=== PATIENT | male | born 1985 | race Hispanic/Latino ===

== ENCOUNTER 2021-07-26 18:28 | Emergency (ER) | payer OTHER ==
[~2021-07-26] VITALS: Ht 180.3 cm; Wt 77.1 kg
[~2021-07-26 18:28] MED LIST: AMOX-426 PO; DOLU50TA PO; EMTR1TAB11 PO; HIV MEDS PO; IBUPROFEN PO; PREN-146 PO; VIT PO
[2021-07-26 18:46] LABS: HEMATOCRIT 50.8 % (42-54); MEAN CORPUSCULAR HEMOGLOBIN 33.6 pg (27.0-33.0); MEAN CORPUSCULAR HGB CONC 34.3 g/dL (32.0-36.0); MEAN CORPUSCULAR VOLUME 98.1 fL (79-99); PLATELET COUNT (AUTO) 254 K/uL (130-400); RED BLOOD CELL COUNT(AUTO) 5.18 MIL/uL (4.50-6.20); RED CELL DISTRIBUTION WIDTH 11.9 % (11.0-15.5)
[2021-07-26] MEDS ORDERED: SOLU-MEDROL 125MG VIAL ONE (18:53)
[2021-07-26 18:54] LABS: CREATININE 1.2 mg/dL (0.5-1.5); POTASSIUM 3.2 mmol/L (3.5-5.1)
[2021-07-26] MEDS ORDERED: SOLU-MEDROL 125MG VIAL IVP ONE (19:00)
[2021-07-26] MEDS ORDERED: 0.9%NACL 1000ML 1,000 ML IV ONE (19:00)
[2021-07-26] MEDS ORDERED: IPRATROPIUM/ALBUTEROL SULFATE 3 ML SOLUTION IH ONE ×3 (19:00)
[2021-07-26 19:03] LABS: ALBUMIN 5.1 g/dL (3.5-5.0); BILIRUBIN,TOTAL 0.4 mg/dL (0.2-1.0); TOTAL PROTEIN, SERUM 8.6 g/dL (6.0-8.3)
[2021-07-26 19:28] VITALS: BP 121/81
[2021-07-26 19:28] LABS: BAND NEUTROPHILS % (MANUAL) 2 % (0-2); EOSINOPHILS % (MANUAL) 1 % (1-6); LYMPHOCYTES % (MANUAL) 16 % (22-44); MAN.DIFF COMMENT-IMPRESSION MANUAL DIFFERENTIAL; MONOCYTES % (MANUAL) 4 % (2-9); REACTIVE LYMPHOCYTES 20 % (0-0); SEGMENTED NEUTROPHILS % 57 % (40-70)
[2021-07-26] MEDS ORDERED: POTASSIUM BICARB/CIT AC 25 MEQ TABLET.EFF PO ONE (19:30)
[2021-07-26 19:51] LABS: APPEARANCE,URINE Clear (CLEAR); BILIRUBIN,URINE Negative (NEGATIVE); COLOR,URINE Yellow (YELLOW); GLUCOSE, URINE (UA) Negative (NEGATIVE); KETONES,URINE Trace mg/dL (NEGATIVE); LEUKOCYTE ESTERASE ,URINE Negative (NEGATIVE); NITRATE,URINE Negative (NEGATIVE); OCCULT BLOOD,URINE Negative (NEGATIVE); PH,URINE 6.5 (5.0-8.0); PROTEIN,URINE Trace mg/dL (NEGATIVE)
[2021-07-26 20:08] LABS: BACTERIA,URINE Rare /HPF (None Seen); RBC,URINE 0-1 /HPF (0-1); SQUAMOUS EPITHELIAL CELL,UR Rare /HPF (0-2); WBC,URINE 0-1 /HPF (0-1)
[2021-07-26] MEDS ORDERED: ALBU8.5H8 IH (20:08)
[2021-07-26] MEDS ORDERED: PRED20TA3 PO (20:13)
== END 2021-07-26 20:37 | disposition home or self-care (01) ==
LOC: EDH 18:28
DX: J45.901 Unspecified asthma with (acute) exacerbation (principal); E87.6 Hypokalemia; Z20.822 Contact with and (suspected) exposure to COVID-19; Z79.52 Long term (current) use of systemic steroids
CPT/HCPCS: 36415; 71045; 80053; 81001; 84484; 85025; 87635; 93005; 94640 ×3; 96374; 99285; C9803; J2930

== ENCOUNTER 2022-01-17 22:36 | Emergency (ER) | payer OTHER ==
[~2022-01-17] VITALS: Ht 180.3 cm; Wt 80.7 kg
[~2022-01-17 22:36] MED LIST changes: +ALBU8.5H8 IH; +PRED20TA3 PO
[2022-01-17] MEDS ORDERED: IBUPROFEN 800 MG TAB PO ONE (23:00)
[2022-01-17] MEDS ORDERED: ACETAMINOPHEN 500 MG TABLET PO ONE (23:00)
[2022-01-17] MEDS ORDERED: 0.9%NACL 1000ML 1,000 ML IV SCH (23:00)
[2022-01-17] MEDS ORDERED: IBUPROFEN 800 MG TAB ONE (23:04)
[2022-01-17] MEDS ORDERED: ACETAMINOPHEN 500 MG TABLET ONE (23:04)
[2022-01-17 23:14] LABS: BASOPHILS % (AUTO) 0.1 % (0.0-5.0); EOSINOPHILS % (AUTO) 0.5 % (0.0-8.0); HEMATOCRIT 41.2 % (42-54); LYMPHOCYTES % (AUTO) 31.1 % (21.0-51.0); MEAN CORPUSCULAR HEMOGLOBIN 33.9 pg (27.0-33.0); MEAN CORPUSCULAR HGB CONC 34.7 g/dL (32.0-36.0); MEAN CORPUSCULAR VOLUME 97.6 fL (79-99); MONOCYTES % (AUTO) 9.9 % (3.0-13.0); NEUTROPHILS % (AUTO) 58.2 % (40.0-77.0); PLATELET COUNT (AUTO) 246 K/uL (130-400); RED BLOOD CELL COUNT(AUTO) 4.22 MIL/uL (4.50-6.20); RED CELL DISTRIBUTION WIDTH 12.5 % (11.0-15.5); WHITE BLOOD COUNT (AUTO) 8.5 K/uL (4.8-10.8)
[2022-01-17 23:27] LABS: CREATININE 1.2 mg/dL (0.5-1.5); POTASSIUM 3.6 mmol/L (3.5-5.1)
[2022-01-17 23:27] LABS: APPEARANCE,URINE CLEAR (CLEAR); BILIRUBIN,URINE NEGATIVE (NEGATIVE); COLOR,URINE YELLOW (YELLOW); GLUCOSE, URINE (UA) NEGATIVE (NEGATIVE); KETONES,URINE NEGATIVE (NEGATIVE); LEUKOCYTE ESTERASE ,URINE NEGATIVE (NEGATIVE); NITRATE,URINE NEGATIVE (NEGATIVE); OCCULT BLOOD,URINE NEGATIVE (NEGATIVE); PH,URINE 6.5 (5.0-8.0); PROTEIN,URINE NEGATIVE (NEGATIVE); UROBILINOGEN,URINE 0.2 mg/dL (0.2-1.0)
[2022-01-17 23:32] LABS: ALBUMIN 3.7 g/dL (3.5-5.0); CRP QUANTITATIVE 52.9 mg/L (0.00-9.0); TOTAL PROTEIN, SERUM 8.2 g/dL (6.0-8.3)
[2022-01-17] MEDS ORDERED: D-ME1POW16 PO (23:44)
[2022-01-17 23:50] VITALS: BP 125/73
== END 2022-01-17 23:59 | disposition home or self-care (01) ==
LOC: EDH 22:36
DX: J06.9 Acute upper respiratory infection, unspecified (principal); E86.0 Dehydration; Z20.822 Contact with and (suspected) exposure to COVID-19; J45.909 Unspecified asthma, uncomplicated; Z79.1 Long term (current) use of non-steroidal anti-inflammatories (NSAID); Z79.52 Long term (current) use of systemic steroids
CPT/HCPCS: 99284; 96360; 71045; 87635; 80053; 85025; 87040 ×2; 87880; 87804 ×2; 83605; 86140; 81003; 36415; C9803; J7030

== ENCOUNTER 2024-06-23 15:24 | Emergency (ER) | payer BC ==
[~2024-06-23] VITALS: Ht 180.3 cm; Wt 86.2 kg
[~2024-06-23 15:24] MED LIST changes: +D-ME1POW16 PO
--- NOTE | 2024-06-23 15:33 | ERN ---
ED Note History of Present Illness Stated Complaint: SOB, FEVER 101.7, BODY ACHES Chief Complaint: Shortness of Breath Time Seen by MD: 15:26 Dictation: PATIENT IS A 39-YEAR-OLD MALE COMING IN TODAY WITH FEVER CHILLS GENERALIZED BODY ACHES AND FLU-LIKE SYMPTOMS TO INCLUDE CLEAR RUNNY NOSE DRY COUGH FOR TWO DAYS. NO NAUSEA VOMITING NO DIARRHEA NO LOSS OF TASTE OR SMELL HE HAS DOES NOT HAVE A PRIMARY CARE DOCTOR, HAS BEEN TAKING NYQUIL [id number] FOR HIS SYMPTOMS. Allergies: Coded Allergies: No Known Allergies (Unverified Allergy, Unknown, 12/26/14) Uncoded Allergies: NKDA (Allergy, Unknown, 12/26/14) Home Meds Active Scripts D-Methorphan/PE/Acetaminophen (Theraflu Ms Severe Cold Pckt) 1 Each Powd.pack, 1 EACH PO QIDP, #20 PACK Prov:JORDI NORRIS 01/17/22 Prednisone (Prednisone) 20 Mg Tablet, 2 TAB PO DAILY for 33 Days, #6 TAB 0 Refills Prov:PARESH SANCHEZ 07/26/21 Albuterol Sulfate (Proair Hfa) 8.5 Gm Hfa.aer.ad, 8.5 GM IH Q6HPRN PRN for SHORTNESS OF BREATH, #1 INHALER Prov:PARESH SANCHEZ 07/26/21 Amoxicillin/Potassium Clav (Augmentin 500-125 Tablet) 1 Each Tablet, 1 EACH PO BID, #20 TAB Prov:MERCEDEZ BRAGA MD 12/30/14 Reported Medications Emtricitabine/Tenofovir (Truvada 200 mg-300 mg Tablet) 1 Each Tablet, 1 EACH PO AM, TAB 12/29/14 Dolutegravir Sodium (Tivicay) 50 Mg Tablet, 50 MG PO AM, TAB 12/29/14 [vit B6] No Conflict Check, TAB PO AM 12/29/14 Pnv95/Ferrous Fumarate/Fa ( Multivitamins Tablet) 1 Each Tablet, 1 EACH PO AM, TAB 12/29/14 [Hiv Meds] No Conflict Check, PO DAILY 12/26/14 [Ibuprufen] No Conflict Check, PO AD PRN for PAIN 12/26/14 Past Medical History Past Medical History: Asthma, HIV Surgical History: None PSYCH History: no pertinent psych hx Family History: Negative Social History: Negative RN Note Reviewed/Agreed w/PFSH: Yes Review of System Dictation CONSTITUTIONAL: NEGATIVE EXCEPT FOR HPI FEVER CHILLS HEAD/FACE: NEGATIVE EXCEPT FOR HPI EENT: NEGATIVE EXCEPT FOR HPI CLEAR RHINITIS WITH MILD SORE THROAT RESPIRATORY: NEGATIVE EXCEPT FOR HPI NONPRODUCTIVE COUGH GASTROINTESTINAL/ABDOMINAL: NEGATIVE EXCEPT FOR HPI GENITOURINARY: NEGATIVE EXCEPT FOR HPI MUSCULOSKELETAL: NEGATIVE EXCEPT FOR HPI INTEGUMENTARY: NEGATIVE EXCEPT FOR HPI NEUROLOGICAL/PSYCH: NEGATIVE EXCEPT FOR HPI HEMATOLOGIC/LYMPHATIC: NEGATIVE EXCEPT FOR HPI ALL SYSTEMS NEGATIVE, EXCEPT NOTED ABOVE. 13 POINT REVIEW OF SYSTEMS ASSESSED AND ALL NEGATIVE EXCEPT FOR ABOVE. Initial Vital Sign VS Vital Signs Date Time Temp Pulse Resp B/P (MAP) Pulse Ox O2 Delivery O2 Flow Rate FiO2 06/23/24 15:35 101.7 120 18 115/76 98 06/23/24 16:03 Room Air* 0 21 Physical Exam Dictation VITAL SIGNS REVIEWED GENERAL APPEARANCE: ALERT, ORIENTED X 3, MODERATE ACUTE DISTRESS, WELL DEVELOPED, NOURISHED. HEAD AND FACE: NON-TRAUMATIC. EYES: PERRL, PINK CONJUNCTIVAS, EYELID NO TRAUMA, ANTERIOR CHAMBER WITH ARCUS SENILIS. EARS: PINNAS INTACT AND NO SIGNS OF TRAUMA OR ERYTHEMA EAR CANALS CLEAR AND NO DISCHARGE TM NO ERYTHEMA NOSE: CLEAR DISCHARGE, NO BLEEDING. OROPHARYNX: MOUTH NORMAL, TONGUE PINK, PHARYNX CLEAR MILD PHARYNGEAL ERYTHEMA, TONSILS NO EXUDATES, NO ABSCESSES NOTED, MUCOUS MEMBRANE MOIST NECK: SUPPLE, NON-TENDER, NO THYROMEGALY, NO MASSES, NO JVD, NO BRUITS BREAST:DEFERRED CHEST:NO TENDERNESS, NO CREPITUS, NO PARADOXICAL MOVEMENT, NO RETRACTIONS LUNGS:CLEAR, WELL-VENTILATED, SYMMETRIC, NO RALES, NO WHEEZING, NO RHONCHI, NO STRIDOR, GOOD BREATH SOUNDS BILATERALLY DRY COUGH NO HEART: REGULAR RATE, REGULAR RHYTHM, NO MURMUR, NO GALLOPS VASCULAR: NO PERIPHERAL EDEMA, ABDOMEN: SOFT, POSITIVE BOWEL SOUNDS, NONDISTENDED, NO GUARDING, NONTENDER, NO REBOUND, NO MASSES NO HEPATOMEGALY, NO SPLENOMEGALY, NO DE LA CRUZ'S SIGN, NO HERNIAS. RECTAL: DEFERRED GENITAL: DEFERRED NEUROLOGICAL: NORMAL SPEECH, MOTOR FUNCTION INTACT, SENSORY FUNCTION INTACT MUSCULOSKELETAL: NECK NONTENDER, FULL RANGE OF MOTION, BACK NONTENDER, FULL RANGE OF MOTION, EXTREMITIES: NONTENDER, FULL RANGE OF MOTION SKIN: COLOR PINK, DRY, NO TURGOR, NO RASH, NO LACERATIONS, NO ABRASIONS, NO CONTUSIONS. LYMPHATIC: DEFERRED Results (Laboratory/Radiology) Laboratory/Radiology Laboratory Tests Test 06/23/24 15:50 Influenza Type A Antigen Positive For Type A Influenza Type B Antigen Negative For Type B SARS-CoV-2 Antigen (Rapid) PRESUMPTIVE NEGATIVE Group A Streptococcus Rapid negative (NEGATIVE) Labs Reviewed?: Yes ED Course ED Course Orders Procedure Category Date Status Time Covid19 (Sars Antigen LAB 06/23/24 Complete Rapid) 15:30 Influenza Type A & B, LAB 06/23/24 Complete Rapid 15:30 Rapid (Group A Strep) LAB 06/23/24 Complete 15:30 Ibuprofen 800 Mg Tab PHA 06/23/24 Complete (Motrin) 15:30 Oseltamivir Phosphate PHA 06/23/24 Transmitted (Tamiflu) 16:30 Current Medications Medications (Trade) Dose Ordered Sig/Tono Route PRN Reason Start Time Stop Time Status Last Admin Dose Admin Ibuprofen (moTRIN) 800 mg ONCE ONCE PO 06/23/24 15:30 06/23/24 15:31 DC 06/23/24 15:45 Vital Signs Date Time Temp Pulse Resp B/P (MAP) Pulse Ox O2 Delivery O2 Flow Rate FiO2 06/23/24 16:03 101.7 115 20 133/85 95 Room Air* 0 21 06/23/24 15:45 101.7 06/23/24 15:35 101.7 120 18 115/76 98 16 15, patient will be given Tamiflu Medical Decision Making MDM Medical discharge making based on swabs for flu COVID and strep Patient positive for influenza A Given initial dose of Tamiflu Discharged home with Tamiflu/albuterol/Tessalon DX & DISP Disposition: Discharge Departure Impression: Primary Impression: Influenza A Additional Impressions: Fever, Cough Condition: Stable Scripts Ibuprofen (Ibuprofen 800 mg Tab) 800 Mg Tab 800 MG PO Q6H PRN for PAIN, #30 TAB Prov: DAVID BARNES MRI TECHNICIAN 06/23/24 Benzonatate (Tessalon Perles) 100 Mg Cap 100 MG PO TID for cough, #30 CAP 0 Refills Prov: DAVID BARNES MRI TECHNICIAN 06/23/24 Albuterol Sulfate (Ventolin Hfa/Proventil Hfa/Proair Hfa) 90 Mcg Puff 2 PUFF IH Q4H for WHEEZING, #1 INHALER 0 Refills Prov: DAVID BARNES MRI TECHNICIAN 06/23/24 Oseltamivir Phosphate (Tamiflu) 75 Mg Cap 75 MG PO BID for 5 Days, #10 CAP Prov: DAVID BARNES MRI TECHNICIAN 06/23/24 Additional Instructions: Follow-up with primary care provider in 1 to 2 days. Take medications as directed here in the emergency room. Okay to continue home medications unless otherwise discussed during your visit in the emergency room today. Return to your nearest emergency room if symptoms worsen or if there is no improvement. Call [phone] if you need immediate assistance. Take Tylenol or Motrin [id number] as needed and if no contraindications are present. Increase oral hydration. A wound culture or urine culture was ordered here in the emergency room department please follow-up with primary care provider and advise them to get repeat ports from our facility. If you had any Floyd wrap/splints that were applied here, please do not remove them until you see your primary care or specialty. Take Tamiflu as directed until gone. Take ibuprofen as needed for fever pain. Use albuterol inhaler every4 hours while awake for the next three days and see your primary care doctor for follow up. Referrals: NONE (PCP) Time of Disposition: 16:15 I have reviewed the case, and I agree with, Diagnosis and Plan DAVID BARNES NP Jun 23, 2024 15:33
[2024-06-23] MEDS: ibuPROFEN 800 MG TAB PO ONE (15:45)
[2024-06-23 16:00] LABS: RAPID GROUP A STREP negative (NEGATIVE)
[2024-06-23 16:04] LABS: COVID19 (SARS ANTIGEN RAPID) PRESUMPTIVE NEGATIVE (NEGATIVE)
[2024-06-23 16:05] LABS: INFLUENZA TYPE B Negative For Type B (NEGATIVE)
[2024-06-23 16:09] LABS: INFLUENZA TYPE A Positive For Type A (NEGATIVE)
[2024-06-23] MEDS ORDERED: ALBUHFA IH (16:16)
[2024-06-23] MEDS ORDERED: OSEL75 PO (16:16)
[2024-06-23] MEDS ORDERED: IBUP-2077 PO (16:16)
[2024-06-23] MEDS ORDERED: BENZ-39 PO (16:16)
[2024-06-23] MEDS: OSELTAMIVIR PHOSPHATE 75 MG CAP PO ONE (16:24)
[2024-06-23 16:28] VITALS: BP 136/81; PULSE 98; RESP 20; TEMP 99.9; O2SAT 95
[2024-06-23 16:29] VITALS: TEMP 99.9
== END 2024-06-23 16:29 | disposition home or self-care (01) ==
LOC: EDH 15:24
DX: J10.1 Influenza due to other identified influenza virus with other respiratory manifestations (principal); R50.9 Fever, unspecified; R05.9 Cough, unspecified; J45.909 Unspecified asthma, uncomplicated; Z79.52 Long term (current) use of systemic steroids; Z20.822 Contact with and (suspected) exposure to COVID-19
CPT/HCPCS: 87426; 87804; 87880; 99283